=== PATIENT | male | born 1985 | race Caucasian/White ===

== ENCOUNTER 2018-02-28 17:53 | Emergency (ER) | payer OTHER ==
[~2018-02-28] VITALS: Ht 182.9 cm; Wt 172.4 kg
[2018-02-28] MEDS ORDERED: SMZ/TMP 400/80MG TABLET. PO STA (19:13)
[2018-02-28] MEDS ORDERED: CEPHALEXIN 250 MG CAPSULE PO ONE (19:15)
[2018-02-28] MEDS ORDERED: CEPH-264 PO (19:16)
[2018-02-28] MEDS ORDERED: SULF1TAB24 PO (19:16)
--- NOTE | 2018-02-28 19:16 | PHYS DOC ---
Past History Past Medical History: Hypertension Past Surgical History: Tonsillectomy Alcohol Use: Rarely Drug Use: None Adult General Chief Complaint Chief Complaint: INSECT BITE HPI HPI Patient is a 32 year old male who presents with complaint of redness and swelling to the right forearm. The patient states that the symptoms have been present over the past 2-3 days. The patient is unsure if he was bit by an insect or stung but started noticing a bump with redness and swelling that has since gotten worse during that time. Patient states initially he had drainage from the center of the bump on his forearm. The patient denies any associated fever. The patient states he was recently diagnosed with type 2 diabetes mellitus and started on medication for treatment. Patient is concerned about infection to the right forearm and thus came to the emergency department for evaluation. At the affected area is painful to touch. Review of Systems Review of Systems Constitutional: Denies fever or chills [] Eyes: Denies change in visual acuity, redness, or eye pain [] HENT: Denies nasal congestion or sore throat [] Respiratory: Denies cough or shortness of breath [] Cardiovascular: No additional information not addressed in HPI [] GI: Denies abdominal pain, nausea, vomiting, bloody stools or diarrhea [] : Denies dysuria or hematuria [] Musculoskeletal: Denies back pain or joint pain [] Integument: Redness and swelling to right forearm[] Neurologic: Denies headache, focal weakness or sensory changes [] Endocrine: Denies polyuria or polydipsia [] All other systems were reviewed and found to be within normal limits, except as documented in this note. Current Medications Current Medications Current Medications Medications (Trade) Dose Ordered Sig/Rubens Start Time Stop Time Status Last Admin Dose Admin Cephalexin HCl (Keflex) 500 mg 1X ONCE 02/28/18 19:15 02/28/18 19:16 UNV Trimethoprim/ Sulfamethoxazole (Bactrim Ss) 1 tab 1X STAT 02/28/18 19:07 02/28/18 19:08 UNV Allergies Allergies Allergies Coded Allergies Type Severity Reaction Last Updated Verified No Known Drug Allergies 06/17/14 No Physical Exam Physical Exam Constitutional: Alert, afebrile, appears in minimal discomfort. [] HENT: Normocephalic, atraumatic, bilateral external ears normal, oropharynx moist, no oral exudates, nose normal. [] Eyes: PERRLA, EOMI, conjunctiva normal, no discharge. [] Neck: Normal range of motion, no tenderness, supple, no stridor. [] Cardiovascular:Heart rate regular rhythm, no murmur [] Lungs & Thorax: Bilateral breath sounds clear to auscultation [] Abdomen: Bowel sounds normal, soft, no tenderness, no masses, no pulsatile masses. [] Skin: Warm, dry, 1 cm indurated central lesion to the volar aspect of right forearm with 3 cm of surrounding erythema, tender to palpation, no fluctuance, no lymphangitic streaking. [] Back: No tenderness, no CVA tenderness. [] Extremities: No tenderness, no cyanosis, no clubbing, ROM intact, no edema. [] Neurologic: Alert and oriented X 3, normal motor function, normal sensory function, no focal deficits noted. [] Current Patient Data Vital Signs Vital Signs Date Time Temp Pulse Resp B/P (MAP) Pulse Ox O2 Delivery O2 Flow Rate FiO2 02/28/18 19:25 78 20 137/68 (91) 98 Room Air 02/28/18 17:53 98.4 Lab Results Not performed EKG EKG Not performed[] Radiology/Procedures Radiology/Procedures Not performed[] Course & Med Decision Making Course & Med Decision Making Pertinent Labs and Imaging studies reviewed. (See chart for details) Patient's symptoms are concerning for localized cellulitis. The patient was started on Bactrim and Keflex in the emergency department and will continue on 10 day course for treatment. Advised patient to follow up with primary doctor in the next 4 days for reevaluation and return to emergency department for any worsening symptoms. Patient was understanding and in agreement with treatment plan. Dragon Disclaimer Dragon Disclaimer This electronic medical record was generated, in whole or in part, using a voice recognition dictation system. Departure Departure: Impression: Primary Impression: Cellulitis Disposition: 01 HOME, SELF-CARE Condition: STABLE Referrals: EDWIN SCHILLING PAC (PCP) Patient Instructions: Cellulitis Additional Instructions: Follow-up the primary doctor in 4 days for reevaluation. Return to the emergency department for any worsening symptoms. Scripts Cephalexin (KEFLEX) 500 Mg Capsule 500 MG PO QID, #28 CAP Prov: VY RODRIGUEZ MD 02/28/18 Sulfamethoxazole/Trimethoprim (BACTRIM DS TABLET) 1 Each Tablet 1 TAB PO BID, #14 TAB Prov: VY RODRIGUEZ MD 02/28/18 Problem Qualifiers Primary Impression: Cellulitis Site of cellulitis: extremity Site of cellulitis of extremity: upper extremity Laterality: right Qualified Codes: L03.113 - Cellulitis of right upper limb VY RODRIGUEZ MD Feb 28, 2018 19:16
[2018-02-28 19:25] VITALS: BP 137/68
== END 2018-02-28 19:30 | disposition home or self-care (01) ==
LOC: ER 17:53
DX: L03.113 Cellulitis of right upper limb (principal); I10 Essential (primary) hypertension
CPT/HCPCS: 99283

== ENCOUNTER 2019-03-13 01:30 | Emergency (ER) | payer OTHER ==
[~2019-03-13] VITALS: Ht 185.4 cm; Wt 168.3 kg
[~2019-03-13 01:30] MED LIST: CEPH-264 PO; SULF1TAB24 PO
--- NOTE | 2019-03-13 02:19 | ED.ADGEN ---
Past History Past Medical History: Diabetes, Hypertension, Other Past Surgical History: Tonsillectomy Additional Smoking Information: quit 7 years ago Alcohol Use: Rarely Drug Use: None Adult General Chief Complaint Chief Complaint Abdominal pain HPI HPI Patient is a 33-year-old male who presents with intermittent lower abdominal pain radiating to right flank. Denies abdominal tenderness. Pain is rated [id number]. Patient isn't diabetic PCP in 2 and a muscle relaxant without improvement of symptoms. Subjective fever, chills and sweats. No urinary frequen cy urgency dysuria or hematuria. Patient does have history of urinary tract infections. No prior abdominal surgeries. No other acute symptoms or complaints [] Review of Systems Review of Systems Review symptoms as per history of present illness. All other review symptoms are negative. All other systems were reviewed and found to be within normal limits, except as documented in this note. Current Medications Current Medications Current Medications Medications (Trade) Dose Ordered Sig/Rubens Start Time Stop Time Status Last Admin Dose Admin Morphine Sulfate (Morphine 4mg Syringe) 4 mg 1X ONCE 03/13/19 02:30 03/13/19 02:31 DC 03/13/19 03:10 4 MG Ondansetron HCl (Zofran) 4 mg 1X ONCE 03/13/19 02:30 03/13/19 02:31 DC 03/13/19 03:10 4 MG Sodium Chloride 1,000 ml @ 1,000 mls/hr 1X ONCE 03/13/19 03:00 03/13/19 03:59 03/13/19 02:00 1,000 MLS/HR Allergies Allergies Allergies Coded Allergies Type Severity Reaction Last Updated Verified No Known Drug Allergies 06/17/14 No Physical Exam Physical Exam Constitutional: Well developed, well nourished, moderate discomfort secondary to pain.[] HENT: Normocephalic, atraumatic, bilateral external ears normal, oropharynx moist, no oral exudates, nose normal. [] Eyes: PERRLA, EOMI, conjunctiva normal, no discharge. [] Neck: Normal range of motion, no tenderness, supple, no stridor. [] Cardiovascular:Heart rate regular rhythm, no murmur [] Lungs & Thorax: Bilateral breath sounds clear to auscultation [] Abdomen: Bowel sounds normal, soft,no tenderness, obesity compromising exam.. [] Skin: Warm, dry, no erythema, no rash. [] Back: No tenderness, no CVA tenderness. [] Extremities: No tenderness, no cyanosis, no clubbing, ROM intact, no edema. [] Neurologic: Alert and oriented X 3, normal motor function, normal sensory function, no focal deficits noted. [] Psychologic: Affect normal, judgement normal, mood normal. [] Current Patient Data Vital Signs Vital Signs Date Time Temp Pulse Resp B/P (MAP) Pulse Ox O2 Delivery O2 Flow Rate FiO2 03/13/19 03:10 16 98 03/13/19 02:49 81 138/73 (94) Room Air 03/13/19 01:45 98.1 Lab Results Laboratory Tests Test 03/13/19 01:55 White Blood Count 8.1 x10^3/uL (4.0-11.0) Red Blood Count 5.24 x10^6/uL (4.30-5.70) Hemoglobin 15.0 g/dL (13.0-17.5) Hematocrit 43.7 % (39.0-53.0) Mean Corpuscular Volume 83 fL (79-100) Mean Corpuscular Hemoglobin 29 pg (25-35) Mean Corpuscular Hemoglobin Concent 34 g/dL (31-37) Red Cell Distribution Width 13.8 % (11.5-14.5) Platelet Count 188 x10^3/uL (140-400) Neutrophils (%) (Auto) 66 % (31-73) Lymphocytes (%) (Auto) 26 % (24-48) Monocytes (%) (Auto) 6 % (0-9) Eosinophils (%) (Auto) 1 % (0-3) Basophils (%) (Auto) 1 % (0-3) Neutrophils # (Auto) 5.3 x10^3uL (1.8-7.7) Lymphocytes # (Auto) 2.1 x10^3/uL (1.0-4.8) Monocytes # (Auto) 0.5 x10^3/uL (0.0-1.1) Eosinophils # (Auto) 0.1 x10^3/uL (0.0-0.7) Basophils # (Auto) 0.1 x10^3/uL (0.0-0.2) Urine Collection Type Unknown Urine Color Yellow Urine Clarity Clear Urine pH 5.5 Urine Specific [place] 1.010 Urine Protein Neg (NEG-TRACE) Urine Glucose (UA) 100 mg/dL (NEG) Urine Ketones (Stick) Neg mg/dL (NEG) Urine Blood Neg (NEG) Urine Nitrite Neg (NEG) Urine Bilirubin Neg (NEG) Urine Urobilinogen Dipstick 0.2 mg/dL (0.2 mg/dL) Urine Leukocyte Esterase Neg (NEG) Urine RBC 0 /HPF (0-2) Urine WBC 1-4 /HPF (0-4) Urine Squamous Epithelial Cells Occ /LPF Urine Bacteria 0 /HPF (0-FEW) Sodium Level 135 mmol/L (136-145) L Potassium Level 3.6 mmol/L (3.5-5.1) Chloride Level 98 mmol/L (98-107) Carbon Dioxide Level 26 mmol/L (21-32) Anion Gap 11 (6-14) Blood Urea Nitrogen 12 mg/dL (8-26) Creatinine 0.9 mg/dL (0.7-1.3) Estimated GFR (Cockcroft-Gault) 97.8 BUN/Creatinine Ratio 13 (6-20) Glucose Level 222 mg/dL (70-99) H Calcium Level 9.3 mg/dL (8.5-10.1) Total Bilirubin 0.5 mg/dL (0.2-1.0) Aspartate Amino Transferase (AST) 54 U/L (15-37) H Alanine Aminotransferase (ALT) 104 U/L (16-63) H Alkaline Phosphatase 45 U/L (46-116) L Total Protein 7.5 g/dL (6.4-8.2) Albumin 4.0 g/dL (3.4-5.0) Albumin/Globulin Ratio 1.1 (1.0-1.7) Lipase 64 U/L (73-393) L EKG EKG [] Radiology/Procedures Radiology/Procedures [ct ABDOMEN PELVIS: nO ACUTE FINDINGS PER RADIOLOGY REPORT] Course & Med Decision Making Course & Med Decision Making Pertinent Labs and Imaging studies reviewed. (See chart for details) [Right flank pain. Etiology unclear. CT, lab nonacute. Suspect musculoskeletal cause. Pain improved with tx. Recommend supportive care watchful waiting and PCP follow-up. Return precautions reviewed] Final Impression Final Impression 1. R flank pain[] Dragon Disclaimer Dragon Disclaimer This electronic medical record was generated, in whole or in part, using a voice recognition dictation system. KATLYN FENG DO Mar 13, 2019 02:19
[2019-03-13] MEDS ORDERED: ONDANSETRON PF 4 MG/2 ML VIAL. IV ONE (02:30)
[2019-03-13] MEDS ORDERED: MORPHINE SULFATE 4 MG/ML DISP.SYRIN. IV ONE ×2 (02:30→04:15)
[2019-03-13 02:38] LABS: BILIRUBIN,URINE NEG (NEG); CLARITY,URINE CLEAR; COLOR,URINE YELLOW; GLUCOSE,URINE 100 mg/dL (NEG)
[2019-03-13 02:39] LABS: BACTERIA,URINE 0 /HPF (0-FEW); NITRITE,URINE NEG (NEG); RBC,URINE 0 /HPF (0-2); SQUAMOUS EPITHELIAL CELL,UR OCC /LPF; UROBILINOGEN,URINE 0.2 mg/dL (0.2 mg/dL)
[2019-03-13 02:42] LABS: ALBUMIN/GLOBULIN RATIO 1.1 (1.0-1.7); CALCIUM 9.3 mg/dL (8.5-10.1); CREATININE 0.9 mg/dL (0.7-1.3); GFR 97.8; POTASSIUM 3.6 mmol/L (3.5-5.1); TOTAL BILIRUBIN 0.5 mg/dL (0.2-1.0); TOTAL PROTEIN 7.5 g/dL (6.4-8.2)
[2019-03-13 02:49] VITALS: BP 138/73
[2019-03-13] MEDS ORDERED: IV NORMAL SALINE 1,000ML 1,000 ML IV ONE (03:00)
[2019-03-13 03:21] LABS: BASO # 0.1 x10^3/uL (0.0-0.2); BASO % 1 % (0-3); EOS # 0.1 x10^3/uL (0.0-0.7); EOS % 1 % (0-3); HEMATOCRIT 43.7 % (39.0-53.0); LYMPH # 2.1 x10^3/uL (1.0-4.8); LYMPH % 26 % (24-48); MEAN CORPUSCULAR HEMOGLOBIN 29 pg (25-35); MEAN CORPUSCULAR HGB CONC 34 g/dL (31-37); MEAN CORPUSCULAR VOLUME 83 fL (79-100); MONO # 0.5 x10^3/uL (0.0-1.1); MONO % 6 % (0-9); NEUT # 5.3 x10^3uL (1.8-7.7); NEUT % 66 % (31-73); PLATELET COUNT 188 x10^3/uL (140-400); RED BLOOD COUNT 5.24 x10^6/uL (4.30-5.70); RED CELL DISTRIBUTION WIDTH 13.8 % (11.5-14.5); WHITE BLOOD COUNT 8.1 x10^3/uL (4.0-11.0)
--- NOTE | 2019-03-13 03:34 | RAD ---
PQRS Compliance Statement: One or more of the following individualized dose reduction techniques were utilized for this examination: 1. Automated exposure control 2. Adjustment of the mA and/or kV according to patient size 3. Use of iterative reconstruction technique CT abdomen/pelvis without contrast 03/13/2019 2:13 AM INDICATION: Bilateral intermittent flank pain radiating to the back. History of back cyst COMPARISON: None available TECHNIQUE: Multiple axial CT images of the abdomen and pelvis were obtained without intravenous contrast. Coronal and sagittal reformats are provided. FINDINGS: Lung bases are clear. Heart size is within normal limits. Hypoattenuation of the hepatic parenchyma suggestive of diffuse hepatic steatosis. Limited evaluation of the solid abdominal viscera secondary to lack of intravenous contrast. Spleen, bilateral adrenal glands, pancreas and gallbladder are normal in appearance. The abdominal aorta is normal in course and caliber. There are no pathologically enlarged lymph nodes in the abdomen and pelvis. There is no abdominal free fluid. There is no free intraperitoneal air. Mild to moderate sigmoid diverticulosis. Small and large bowel are normal in caliber. There is no evidence for bowel obstruction. There are no pericolonic inflammatory changes. A normal, nondilated appendix is visualized without adjacent inflammatory changes. There is a 2.6 cm cyst in the interpolar right kidney. The kidneys are relatively symmetric in appearance. There is no suspicious renal mass within the limitations of a noncontrast examination. There is no hydronephrosis. There are no calculi within the kidneys, ureters or urinary bladder. Urinary bladder is within normal limits given degree of distention. Prostate and seminal vesicles are normal. No suspicious osseous abnormality is identified. IMPRESSION: 1. No acute abnormality identified in the abdomen and pelvis. Specifically, no evidence for obstructive uropathy. 2. Diffuse hepatic steatosis. 3. Appendix is normal. 4. Mild to moderate sigmoid diverticulosis. Electronically signed by: Lisa Tomas MD (03/13/2019 3:32 AM) [id number]
[2019-03-13] MEDS ORDERED: HYDR-3136 PO (04:00)
== END 2019-03-13 04:40 | disposition home or self-care (01) ==
LOC: ER 01:30
DX: R10.31 Right lower quadrant pain (principal); R10.32 Left lower quadrant pain; K57.30 Diverticulosis of large intestine without perforation or abscess without bleeding; K76.0 Fatty (change of) liver, not elsewhere classified; E11.9 Type 2 diabetes mellitus without complications; I10 Essential (primary) hypertension; Z87.440 Personal history of urinary (tract) infections; Z87.891 Personal history of nicotine dependence
CPT/HCPCS: 36415; 74176; 80053; 81001; 83690; 85025; 96374; 96375; 96376; 99285; J2270; J2405; J7030

== ENCOUNTER → 2019-03-14 | Outpatient (CLI) | payer OTHER ==
[2019-03-13 02:49] VITALS: BP 138/73
[~2019-03-14] MED LIST changes: +HYDR-3136 PO
--- NOTE | 2019-03-15 08:25 | RAD ---
Lumbar spine, 3 views, 03/14/2019: HISTORY: Back pain The lumbar vertebral heights and intervertebral disc spaces are well-maintained. There are mild to moderate scattered marginal spurs. No fracture or subluxation is evident. The paraspinous soft tissues are unremarkable. IMPRESSION: 1. Scattered marginal spurs. 2. No acute lumbar spine abnormality is detected. Thoracic spine, 03/14/2019: HISTORY: Back pain The thoracic vertebral heights are well-maintained. There are mild scattered marginal spurs. No fracture or subluxation is evident. The paraspinous soft tissues are unremarkable. IMPRESSION: 1. Scattered marginal spurs. 2. No acute thoracic spine abnormality is detected. Electronically signed by: Art Luna MD (03/15/2019 8:22 AM) [facility]
--- NOTE | 2019-03-15 08:25 | RAD ---
Lumbar spine, 3 views, 03/14/2019: HISTORY: Back pain The lumbar vertebral heights and intervertebral disc spaces are well-maintained. There are mild to moderate scattered marginal spurs. No fracture or subluxation is evident. The paraspinous soft tissues are unremarkable. IMPRESSION: 1. Scattered marginal spurs. 2. No acute lumbar spine abnormality is detected. Thoracic spine, 03/14/2019: HISTORY: Back pain The thoracic vertebral heights are well-maintained. There are mild scattered marginal spurs. No fracture or subluxation is evident. The paraspinous soft tissues are unremarkable. IMPRESSION: 1. Scattered marginal spurs. 2. No acute thoracic spine abnormality is detected. Electronically signed by: Art Luna MD (03/15/2019 8:22 AM) [facility]
== END | disposition home or self-care (01) ==
LOC: DXRAD 17:07
PROVIDERS: ATTEND Physician Assistant
DX: M46.05 Spinal enthesopathy, thoracolumbar region (principal)
CPT/HCPCS: 72072; 72100

== ENCOUNTER 2021-12-10 13:03 | Emergency (ER) | payer OTHER ==
[~2021-12-10] VITALS: Ht 185.4 cm; Wt 181.4 kg
--- NOTE | 2021-12-10 15:57 | RAD ---
XR CHEST 1V Clinical History: Reason: chest pain / Spl. Instructions: / History: Technique: AP view of the chest was obtained at 12/10/2021 3:41 PM. Comparison: None. Findings: The cardiomediastinal silhouette is normal. The pulmonary vasculature is normal. The lungs and pleura l margins are clear. Impression: No evidence of an acute cardiopulmonary process. Electronically signed by: Micah Oscar III, MD (12/10/2021 3:54 PM) [facility]
--- NOTE | 2021-12-10 16:04 | PHYS DOC ---
Past History Past Medical History: Diabetes, Hypertension, Other (JOI WILSON MD) Past Surgical History: Tonsillectomy (JOI WILSON MD) Alcohol Use: Rarely Drug Use: None (JOI IWLSON MD) Adult General Chief Complaint Chief Complaint: SHORTNESS OF BREATH HPI HPI The patient is a 36-year-old male with a history of hypertension, ina-[id number]-[id number] diabetes and obesity. He presents for evaluation of pleuritic left upper sternal chest discomfort with onset about 2 days ago. Discomfort is worse with deep breathing and is also worse with direct palpation of the area that hurts and with movement of the left arm. It radiates to the left upper arm at times. Discomfort is most noticeable when the patient is actively coughing. He reports that he is getting over an upper respiratory illness which she had last week; states all symptoms have resolved aside from a persistent nonproductive cough. Patient denies associated fevers, nausea or vomiting, shortness of breath, abdominal pain of any kind, flank pain, midline back pain, dysuria, hematuria, polyuria or oliguria, changes in bowel habits. Vital signs are appropriate here aside from somewhat elevated blood pressure. Patient is in no acute distress, ambulatory into the emergency department with a narrow, steady gait. (JOI WILSON MD) Review of Systems Review of Systems A 12 point review of systems was completed and was negative except where noted in HPI above. (JOI WILSON MD) Allergies Allergies Allergies Coded Allergies Type Severity Reaction Last Updated Verified No Known Drug Allergies 06/17/14 No (JOI WILSON MD) Physical Exam Physical Exam 36-year-old male appearing nontoxic and in no acute distress. Head is normocephalic and atraumatic. Neck is supple and nontender. Oropharynx is moist. Lungs are clear to auscultation at all stations. There is a normal S1 and S2 without rubs or gallops and capillary refill is appropriate, less than 2 seconds globally. Abdomen is soft, nontender nondistended. Skin is warm and dry without cyanosis, clubbing or edema. Psychiatrically, the patient demonstrates appropriate mood and affect and is alert. Evaluation of the extremities reveals BUEs and BLEs neurovascularly intact distally with strength 5 out of 5, sensation intact to light touch in all nerve distributions, capillary refill less than 2 seconds, hands and feet warm and well-perfused. No dependent peripheral edema distally. No calf tenderness or swelling bilaterally. Sarah's test is negative bilaterally. (JOI WILSON MD) Current Patient Data Vital Signs Vital Signs Date Time Temp Pulse Resp B/P (MAP) Pulse Ox O2 Delivery O2 Flow Rate FiO2 12/10/21 15:03 98.6 91 16 135/83 (100) 99 Room Air (JOI WILSON MD) EKG EKG Sinus rhythm, rate 79, no acute ST elevation or depression, [place] 184, QRS 104, QTc 423, EP interpretation. Nonischemic tracing, intervals appropriate. (JOI WILSON MD) Radiology/Procedures Radiology/Procedures XR CHEST 1V Clinical History: Reason: chest pain / Spl. Instructions: / History: Technique: AP view of the chest was obtained at 12/10/2021 3:41 PM. Comparison: None. Findings: The cardiomediastinal silhouette is normal. The pulmonary vasculature is normal. The lungs and pleural margins are clear. Impression: No evidence of an acute cardiopulmonary process. Electronically signed by: Manan Dupont III, MD (12/10/2021 3:54 PM) [facility] DICTATED AND SIGNED BY: MANAN DUPONT III, MD DATE: 12/10/21 1554 CC: JOI WILSON MD; EDWIN SCHILLING PAC ~ [] (JOI WILSON MD) Impressions: CTA Chest with contrast: Clinical History: Reason: elev D dimer, steroid use, pleuritic chest pain- Axial helical images of the chest were obtained after the administration of 100 cc of IV Omnipaque 350 and timed appropriately for a pulmonary arterial study. Conventional axial reconstruction was performed in addition to coronal, sagittal and bilateral oblique MIP (maximum intensity projection). This study was ordered to detect possible pulmonary embolism. There are no filling defects to suggest pulmonary embolism. The lungs and pleural margins are clear. There is no mediastinal or hilar lymphadenopathy. The thoracic aorta appears normal. There is bilateral gynecomastia. Impression: 1. No evidence of pulmonary embolism. 2. No significant findings. PQRS Compliance Statement: One or more of the following individualized dose reduction techniques were utilized for this examination: 1. Automated exposure control 2. Adjustment of the mA and/or kV according to patient size 3. Use of iterative reconstruction technique Electronically signed by: Manan Dupont III, MD (12/10/2021 6:28 PM) [facility] DICTATED AND SIGNED BY: MANAN DUPONT III, MD DATE: 12/10/211825 CC: KATLYN HAMILTON DO; JOI WILSON MD; EDWIN SCHILLING PAC ~ (KATLYN HAMILTON DO) Heart Score C/O Chest Pain: No Risk Factors: Risk Factors: DM, Current or recent (<one month) smoker, HTN, HLP, family history of CAD, obesity. Risk Scores: Risk Factors: DM, Current or recent (<one month) smoker, HTN, HLP, family history of CAD, obesity. (JOI WILSON MD) Course & Med Decision Making Course & Med Decision Making 36-year-old gentleman presenting for atypical pleuritic chest discomfort over the past couple of days in the setting of a dry cough ever since getting over a URI last week. Has been taking oral steroids for 2 days for cough suppression, prescribed by primary. HEART score 2 (for risk factors only). Wells low risk for pulmonary embolism but does not PERC out secondary to steroid use. Checking labs, EKG, chest x-ray and will then reevaluate. 1800: Patient resting comfortably in no acute distress on serial reassessments. Work-up unremarkable aside from elevated D-dimer. Obtaining CT pulmonary angiogram to rule out PE. Obtaining delta troponin. Transition of care at this time to Dr. Hamilton pending rest of work-up and reevaluation for disposition. (JOI WILSON MD) Course & Med Decision Making The patient's CTA is negative for pulmonary embolus. Repeat troponin is pending. The patient's repeat troponin is negative. He is stable for discharge at this time. (KATLYN HAMILTON DO) Dragon Disclaimer Dragon Disclaimer This electronic medical record was generated, in whole or in part, using a voice recognition dictation system. (JOI WILSON MD) Departure Departure: Impression: Primary Impression: Pleuritic chest pain Additional Impression: Cough Disposition: 01 HOME / SELF CARE / HOMELESS Condition: STABLE Referrals: EDWIN SCHILLING PAC (PCP) Patient Instructions: Chest Wall Pain, [id number] Problem Qualifiers JOI WILSON MD Dec 10, 2021 16:03 KATLYN HAMILTON DO Dec 10, 2021 18:59
[2021-12-10 16:14] LABS: BASO % 0 % (0-3); EOS # 0.1 x10^3/uL (0.0-0.7); EOS % 1 % (0-3); HEMATOCRIT 40.5 % (39.0-53.0); LYMPH # 2.8 x10^3/uL (1.0-4.8); LYMPH % 31 % (24-48); MEAN CORPUSCULAR HEMOGLOBIN 29 pg (25-35); MEAN CORPUSCULAR HGB CONC 34 g/dL (31-37); MEAN CORPUSCULAR VOLUME 85 fL (79-100); MONO # 0.5 x10^3/uL (0.0-1.1); MONO % 6 % (0-9); NEUT # 5.8 x10^3uL (1.8-7.7); NEUT % 62 % (31-73); PLATELET COUNT 226 x10^3/uL (140-400); RED BLOOD COUNT 4.77 x10^6/uL (4.30-5.70); RED CELL DISTRIBUTION WIDTH 13.4 % (11.5-14.5); WHITE BLOOD COUNT 9.3 x10^3/uL (4.0-11.0)
[2021-12-10 16:22] LABS: CALCIUM 8.6 mg/dL (8.5-10.1); CREATININE 0.9 mg/dL (0.7-1.3); POTASSIUM 3.8 mmol/L (3.5-5.1)
[2021-12-10 16:28] LABS: ALBUMIN/GLOBULIN RATIO 1.4 (1.0-1.7); TOTAL BILIRUBIN 0.6 mg/dL (0.2-1.0); TOTAL PROTEIN 6.9 g/dL (6.4-8.2)
[2021-12-10] MEDS ORDERED: IOHEXOL 350 MG/ML 100 ML VIAL. IV ONE (17:30)
--- NOTE | 2021-12-10 18:31 | RAD ---
CTA Chest with contrast: Clinical History: Reason: elev D dimer, steroid use, pleuritic chest pain- Axial helical images of the chest were obtained after the administration of 100 cc of IV Omnipaque 35 0 and timed appropriately for a pulmonary arterial study. Conventional axial reconstruction was perf ormed in addition to coronal, sagittal and bilateral oblique MIP (maximum intensity projection). Thi s study was ordered to detect possible pulmonary embolism. There are no filling defects to suggest pulmonary embolism. The lungs and pleural margins are clear. There is no mediastinal or hilar lymphadenopathy. The thoracic aorta appears normal. There is bilateral gynecomastia. Impression: 1. No evidence of pulmonary embolism. 2. No significant findings. PQRS Compliance Statement: One or more of the following individualized dose reduction techniques were utilized for this examinat ion: 1. Automated exposure control 2. Adjustment of the mA and/or kV according to patient size 3. Use of iterative reconstruction technique Electronically signed by: Micah Oscar III, MD (12/10/2021 6:28 PM) [facility]
[2021-12-10 19:06] LABS: % BANDS 3 % (0-9); % EOS 1 % (0-5); % LYMPHS 23 % (24-48); % METAS 1 % (0-0); % MONOS 4 % (0-10); % MYELOS 1 % (0-0); % SEGS 67 % (35-66)
[2021-12-10 19:07] VITALS: BP 154/76
[2021-12-10 19:10] LABS: PLT ESTIMATE ADEQUATE (ADEQUATE)
--- NOTE | 2021-12-10 23:45 | EKG ---
[address] [address] Test Date: 2021-12-10 Test Time: 15:50:33 Pat Name: ROMANA BALDWIN Department: Room: Gender: M [employer]: : 1985 Requested By: JOI WILSON Order Number: [id number] Reading MD: Tang Downing MD Measurements Intervals [place] Rate: 79 P: 33 GA: 184 QRS: 9 QRSD: 104 T: 9 QT: 364 QTc: 423 Interpretive Statements SINUS RHYTHM Electronically Signed On 12-14-2021 7:15:30 CDT by Tang Downing MD
== END 2021-12-10 16:42 | disposition short-term general hospital (02) ==
LOC: ER 13:03
DX: R07.81 Pleurodynia (principal); R05.9 Cough, unspecified; E11.9 Type 2 diabetes mellitus without complications; I10 Essential (primary) hypertension; E66.9 Obesity, unspecified; Z68.43 Body mass index [BMI] 50.0-59.9, adult
CPT/HCPCS: 36415; 71045; 71275; 80053; 84484; 85007; 85025; 85379; 93005; 99285; Q9967